=== PATIENT | female | born 1995 | race Two or more races ===

== ENCOUNTER 2016-05-29 21:04 | Outpatient (CLI) | payer OTHER ==
[2016-05-29 21:22] VITALS: BMI 31.1
[2016-05-30] MEDS ORDERED: MORPHINE SULFATE 10 MG/ML SYRINGE IM ONE (00:11)
[2016-05-30] MEDS ORDERED: PROMETHAZINE HCL 25 MG/ML VIAL IM ONE (00:11)
== END 2016-05-30 01:00 | disposition home or self-care (01) ==
LOC: FBCOUT 21:04 → FBC 21:04 → FBCOUT 05-30 01:00
PROVIDERS: ATTEND Advanced Practice Midwife
DX: O47.03 False labor before 37 completed weeks of gestation, third trimester (principal); Z3A.35 35 weeks gestation of pregnancy
CPT/HCPCS: 96372; 59025; J2270; J2550; G0463

== ENCOUNTER 2016-05-31 03:10 | Inpatient (IN) | payer OTHER ==
[2016-05-31 03:30] VITALS: BMI 31.6
[2016-05-31] MEDS ORDERED: PUMP TUBING ONE (03:47)
[2016-05-31] MEDS ORDERED: OXYTOCIN 10 UNITS/ML VIAL ONE (03:47)
[2016-05-31] MEDS ORDERED: LIDOCAINE 1% (PRES FREE) 30 ML VIAL ONE (03:47)
[2016-05-31] MEDS ORDERED: MINERAL OIL 25 ML BOT ONE (03:47)
[2016-05-31] MEDS ORDERED: LIDOCAINE Viscous 2% 15 ML UDCUP ONE (03:47)
[2016-05-31] MEDS ORDERED: OXYTOCIN IN LR 500 ML IV ONE (03:48)
--- NOTE | 2016-05-31 04:54 | PCMAN ---
OB Admission Note - History : 1 Term: 0 : 0 Abortions (S&E): 0 Livin EDC:: 05/24/16 (by 11wk u/s) Gestational Age (weeks): 41 Days (#/7): 0 Admit Cervical Dilation:: 6 Admit Cervical Effacement (%):: 100 Admit Station:: 0 Admit Presentaton:: vertex Membrane Status: Bulging Labor Onset (Date): 05/31/16 Labor Onset (Time): 02:00 Contractions: Yes Contraction Frequency:: 3-4 min Heart Rate:: 145 (moderate/accels present/decels absent) Status:: Cat. I, appropriate for IA EFW:: 8lb Summary of Course:: Onset to care at 9w0d x 15 visits. pre preg wt 150lbs, BMI 27.5, TWG 36lbs, Uncomplicated . Hx THC use prior to , neg UDS in , and hx depression and anxiety, not current but risk for depression/ anxiety. Spontaneous onset of contractions following prodromal labor with triage /labor checks x2 and therapeutic rest. She is coping well and would like to try without an epidural, but she is open to this option. She is supported by her partner José Luis. - Labs Blood Type: A (+) positive Hct/Hgb:: 11.3 Rubella Status: Immune GBS Status: Negative Abnormal Labs: None - Review of Systems ROS neg - Physical Exam General: Afebrile Psych/Mental Status: Mood/Affect Appropriate, Judgment/Insight Intact, Bonding Well Neurological: Grossly Intact, Alert, Oriented x 4, Normal Gait, Normal Speech Lungs: Clear to Auscultation Bilaterally, Normal Air Movement Cardiovascular: Regular Rate and Rhythm Genitourinary: Normal Female Genitalia Rectal Exam: Deferred Extremities: Full ROM Skin: Normal Color, Warm, Dry, Intact - Problems (1) Spontaneous onset of labor Status: Acute Code: [id number]/Plan: A: with IUP at 41w0d Active Labor FHT Cat I, appropriate for IA Membranes intact, gbs neg P: Admit to [facility], encouraged hydrotherapy No saline lock at this time, will reassess PRN encourage active movement anticipate
[2016-05-31] MEDS ORDERED: IV START KIT ONE (11:08)
[2016-05-31] MEDS ORDERED: FENTANYL 100 MCG/2 ML VIAL ONE (11:09)
[2016-05-31] MEDS ORDERED: SODIUM CHLORIDE 0.9% FLUSH 10 ML ONE ×2 (11:09→11:34)
[2016-05-31] MEDS: FENTANYL 100 MCG/2 ML VIAL IV PRN ×2 (11:44→18:26)
[2016-05-31 13:48] LABS: HEMATOCRIT 38.7 % (37.0-47.0); HEMOGLOBIN 13.2 gm/l (12.0-16.0); MEAN CELL VOLUME 88.4 fl (81.0-99.0); MEAN CORPUSCULAR HEMOGLOBIN 30.1 pg (27.0-31.0); MEAN CORPUSCULAR HGB CONC 34.1 g/dl (33.0-37.0)
--- NOTE | 2016-05-31 14:33 | PDOC36 ---
Provider Note Subject: labor progress note - fentanyl Note: S: States she is very tired, can hardly keep her eyes open. Has walked, sat on ball, and napped off and on but not gotten enough rest. She is now requesting pain meds to rest. O: 7.5/100/0. anterior, soft. IA: 130/increases auscultated/decreases not auscultated Ctx: q 3-8min, moderate VS: 120/81, P:113, R: 18 A: at 41w Active Labor Membranes Intact, GBS neg Appropriate for IA untill given IV pain meds P: Fentanyl ordered. Reviewed continued but slow labor progress, spaced contractions, and fatigue. Plan made for IV fentanyl followed by upright activity and possible AROM. Continuous monitoring while given fentanyl.
--- NOTE | 2016-05-31 14:35 | PDOC36 ---
Provider Note Subject: labor progress note - AROM Note: S: Colette was able to sleep for approx 45min with fentanyl and has been sitting up on the ball since. She states she is still tired but feels better. No significant change in ctx pattern or intensity. O: 8/100/0 IA: 130/increases auscultated/decreases not auscultated Ctx: q 5min, moderate VS: BP: 128/82, P:125, R: 18 A: at 41w Active Labor - protracted AROM for clear fluid, GBS neg Appropriate for IA Tachycardia noted, asymptomatic P: AROM for clear fluid. Reviewed anticipatory guidance for 2nd stage and more intense contractions. Colette states she is worried about the pain. Encouraged hands and knees and sitting on the ball, lunges, prior to returning to hydrotherapy Anticipate
[2016-05-31] MEDS: LACTATED RINGERS 1,000 ML IV SCH ×3 (19:05→22:56)
[2016-05-31] MEDS ORDERED: EPIDURAL PUMP SET ONE (19:21)
[2016-05-31] MEDS ORDERED: FENTANYL/ROPIVACAINE EPIDURAL 250 ML EP ONE (19:21)
[2016-05-31] MEDS ORDERED: LACTATED RINGERS 1,000 ML ONE (19:22)
[2016-05-31] MEDS ORDERED: EPIDURAL PROCEDURE TRAY ONE (19:49)
[2016-05-31] MEDS ORDERED: LIDOCAINE 2% (PRES FREE) 5 ML VIAL ONE (19:49)
--- NOTE | 2016-05-31 21:16 | PDOC36 ---
Provider Note Subject: Labor Progress Note Note: Note delayed due to involvement in patient care: S:At 1830 Colette was not coping well with labor. She was having increasing pain in her hips and legs. She requested medical pain management at this time. O: VS BP 127/81 P110 RR 18 T 98.8F SVE by offgoing CNM 8/100%/0 with anterior lip BSL 150 moderate variability, pos accels, no decels Ctx q 90 sec to 3 mins, lasting 60-80 sec Membranes ruptured x 7 hours A: at 41w0d Active Labor Maternal tachycardia, afebrile Desires epidural Fetus Cat 1 GBS neg P: One dose of 50mcg fentanyl was given while IV was replaced and fluids were started prior to epidural placement. Epidural initiated at 1950 Eating clears for energy, will sleep and rest until feels urge to push. Recheck in 2 hours or when clinically indicated Anticipate
[2016-05-31] MEDS: OXYTOCIN IN LR 500 ML IV PRN (23:29)
--- NOTE | 2016-05-31 23:31 | PDOC36 ---
Provider Note Subject: Labor Progress Note Note: S: Colette is resting comfortably with the epidural. She has been able to sleep. O: VS BP 139/70 HR 126 RR 16 T 100.0F SVE 9/100%/0 Ruptured membranes x 9 hours Ctx q2-4 mins palpating mild to moderate, lasting 70-90sec before IUPC After IUPC - MVU's 90 - q 2-3 mins lasting 60-90 sec BSL 160 moderate variability, pos accels, no decels A: at 41w0d Inadequate labor progress, inadequate contraction strength Maternal tachycardia, afebrile Fetus Cat 1 Ruptured x 9 hours GBS neg P: After discussion regarding inadequate progress, advised placement of IUPC to assess contraction strength. After IUPC placement and MVU's of 90 noted, discussed need to initiate Pitocin augmentation to help her uterus finish the work of labor. Colette understands and agrees to the plan. Discussed that we titrate Pitocin by starting low and increasing slowly, always monitoring her response and the infant's response. Pitocin augmentation initiated per unit protocol. CEFM. Using peanut ball and position changes to facilitate rotation and descent. Recheck in 2 hours or when clinically indicated Anticipate
[2016-05-31] MEDS ORDERED: ACETAMINOPHEN 500 MG TABLET PO PRN (23:49)
[2016-06-01] MEDS ORDERED: AMPICILLIN SODIUM 2 G VIAL ONE ×2 (00:04→06:01)
[2016-06-01] MEDS ORDERED: NS 0.9% (MINI-BAG PLUS) 100 ML IV ONE ×2 (00:04→06:01)
[2016-06-01] MEDS ORDERED: SODIUM CHLORIDE 0.9% 0 ML IV ONE (00:08)
[2016-06-01] MEDS ORDERED: GENTAMICIN SULFATE 800 MG/20 ML VIAL ONE ×2 (00:08→01:50)
[2016-06-01] MEDS: AMPICILLIN SODIUM 2 G in NS 0.9% (MINI-BAG PLUS) 100 ML IV SCH ×2 (00:13→06:05)
[2016-06-01] MEDS ORDERED: PUMP TUBING ONE (00:27)
[2016-06-01] MEDS ORDERED: IV START KIT ONE (00:27)
--- NOTE | 2016-06-01 00:28 | PDOC36 ---
Provider Note Subject: Labor Progress Note Note: S: Colette is resting and feels some tugging where her catheters are placed. She feels some pressure with contractions. O: BP 129/70 HR 137 R 20 T 101.7F Ax and 102.2F Ax (30 mins apart) BSL 170 moderate variability, occasional variable decels, not >50% of contractions, no accels MVU's 100- 130 Pitocin infusing at 3 SVE deferred. Clear fluid, no malodor A: at 41w0d Inadequate labor progress, inadequate contraction strength Maternal and tachycardia Maternal fever Fetus Cat 2 Intra-amniotic infection P: Discussion with Colette explaining the infection and why we treat. Discussed that we are closely monitoring her and the baby. Amp & Gent Tylenol for fever Per Cat II algorithm OK to continue and anticipate . Pitocin augmentation continued per unit protocol. CEFM. Using peanut ball and position changes to facilitate rotation and descent. Recheck in 2 hours or when clinically indicated Anticipate
[2016-06-01] MEDS ORDERED: SODIUM CHLORIDE 0.9% IV SCH ×2 (01:00→01:53)
[2016-06-01] MEDS ORDERED: FENTANYL/ROPIVACAINE EPIDURAL 250 ML EP SCH (01:00)
[2016-06-01] MEDS ORDERED: GENTAMICIN SULFATE IV SCH ×2 (01:00→01:53)
[2016-06-01] MEDS ORDERED: GENTAMICIN SULFATE 320 MG in SODIUM CHLORIDE 0.9% 100 ML IV SCH (01:15)
[2016-06-01] MEDS: OXYTOCIN IN LR 500 ML IV PRN ×2 (01:21→03:49)
[2016-06-01] MEDS ORDERED: NALBUPHINE HCL 20 MG/ML AMP IV PRN (01:25)
[2016-06-01] MEDS ORDERED: METOCLOPRAMIDE HCL 5 MG/ML 2ML VIAL IV PRN (01:25)
[2016-06-01] MEDS ORDERED: DIPHENHYDRAMINE HCL 50 MG/1 ML VIAL IV PRN ×2 (01:25→10:53)
[2016-06-01] MEDS ORDERED: NALOXONE HCL 0.4 MG/ML VIAL IV PRN (01:25)
[2016-06-01] MEDS ORDERED: EPHEDRINE SULFATE 50 MG/ML 1ML VIAL IV PRN (01:25)
[2016-06-01] MEDS ORDERED: LACTATED RINGERS 500 ML IV PRN (01:25)
[2016-06-01] MEDS ORDERED: SODIUM CHLORIDE 0.9% 500 ML IV PRN (01:25)
[2016-06-01] MEDS ORDERED: ONDANSETRON 4 MG/2ML 2 ML VIAL IV PRN ×2 (01:25→10:53)
[2016-06-01] MEDS ORDERED: GENTAMICIN SULFATE 200 MG in SODIUM CHLORIDE 0.9% 100 ML IV SCH (01:30)
[2016-06-01] MEDS ORDERED: SODIUM CHLORIDE 0.9% 100 ML IV ONE ×2 (01:50)
[2016-06-01] MEDS ORDERED: SODIUM CHLORIDE 0.9% IV ONE (02:30)
[2016-06-01] MEDS ORDERED: GENTAMICIN SULFATE IV ONE (02:30)
--- NOTE | 2016-06-01 03:44 | PDOC36 ---
Provider Note Subject: Labor Progress Note Note: S: Colette feels more pressure with contractions. She says that she feels cooler and not as tired now. O: VS BP 115/68 P 139 RR 18 T 101.2F Axillary SVE complete/+1 BSL 165 moderate variability, occasional variable decels, pos accels MVUs 200 at 0200 ctx q 2-4 mins lasting 70-80sec ruptured x 13 hours, light mec A: at 41w0d Adequate MVUs Fetus Cat 2 Intra-amniotic infection s/p tx with tylenol, amp and gent P: Tried pushing over 4-5 contractions and noted minimal descent with effort. Will labor down x one hour and continue with pushing. Continue to monitor fetus and mother closely. Pitocin augmentation continued per unit protocol. CEFM. High tailor's position to facilitate descent Recheck in 1 hours or when clinically indicated Anticipate
[2016-06-01] MEDS ORDERED: ACETAMINOPHEN 500 MG TABLET PO PRN (05:51)
--- NOTE | 2016-06-01 06:02 | PDOC36 ---
Provider Note Subject: Labor Progress Note Note: S: Colette has been pushing with contractions - she is feeling more pain and rpessure with ctx. O: VS BP 128/87 P 142 RR 18 T 100.7FAxillary SVE complete/+1 BSL 175 moderate variability, occasional variable decels, pos accels MVUs 190 ctx q 2-4 mins lasting 60-80sec A: at 41w0d Adequate MVUs Fetus Cat 2 Intra-amniotic infection s/p tx with tylenol, amp and gent P: Has pushed for about 45 minutes total since complete at [address] Appiah and with the moderate variability adn absence of significant decelerations, it is reasonable to continue to push for anohter 1 -2 hours since she is a nullip with an epidural. Continue pushing in a variety of positions to facilitate descent. Continue to monitor fetus and mother closely. Treat maternal temp again at 0600 with 1000mg tylenol. COntinue with amp and gent per protocol. Pitocin augmentation continued per unit protocol. CEFM. Consult with on-call thread singer as appropriate Anticipate
[2016-06-01] MEDS: LACTATED RINGERS 1,000 ML IV SCH (06:25)
[2016-06-01] MEDS ORDERED: LIDOCAINE 2%/EPI (PRES FREE) 20 ML VIAL ONE (08:33)
--- NOTE | 2016-06-01 08:34 | PDOC36 ---
Provider Note Subject: Called by CNM to evaluate patient with chorioamnionitis. Patient has been pushing for several hours and can't seem to get the baby past +1/2 station. Pushed with patient for about 45 minutes, poor maternal effort. station did not move past +1/[address] vaccuum at that station. Patient decided she didn't have the strength to proceed with vaginal delivery and would like to proceed with ceserean section. VSS SVE: 10/100/+1-2. FHT: 140/mod/+accels/-decels [place]: Q3 A/P 20 yo @41.1, labor. Failure to descend, chorioamnionitis. Will proceed with primary ceserean section. R/B/A discussed with patient and family. Anesthesia notified.
[2016-06-01] MEDS ORDERED: OXYTOCIN 10 UNITS/ML VIAL ONE ×5 (08:35→10:52)
[2016-06-01] MEDS ORDERED: ONDANSETRON 4 MG/2ML 2 ML VIAL ONE (08:35)
[2016-06-01] MEDS ORDERED: CEFAZOLIN SODIUM 1 GRAM PREMIX 1 G in Premix (D5W) 50 ml 1 EACH IV PRN (08:52)
[2016-06-01] MEDS ORDERED: CEFAZOLIN SODIUM 1 GRAM PREMIX 50 ML IV ONE (08:56)
--- NOTE | 2016-06-01 09:01 | PDOC36 ---
Provider Note Subject: Labor Progress Note Note: S: Colette is feeling more painful and tired. O: VS BP 128/87 P 142 RR 18 T 100.7FAxillary SVE complete/+1 after 2 hours pushing in multiple positions BSL 155 moderate variability, occasional variable decels, pos accels MVUs unable to assess with pushed Pitocin at 9 ctx q 2-3 mins lasting 60-80 sec A: at 41w0d Adequate MVUs Fetus Cat 2, no evidence of acidemia Intra-amniotic infection s/p tx with tylenol, amp and gent Inadequate progress for 2 hours despite adequate MVUs P: Consulted with Dr Bentley to assess for vacuum assist or CS. Dr Bentley pushed with Colette for about 30 minutes and also noted minimal descent. Recommended vacuum if Colette was able to mount good effort and bring baby to favorable station or CS if Colette did not feel able to continue at this time. Counseled that we have been able to go this long because baby was doign well per EFM. After discussion with her partner, Colette opted for CS delivery at this time. Anesthesia notified and Colette consented for CS delivery.
[2016-06-01] MEDS ORDERED: PROPOFOL 20 ML IV ONE (09:23)
[2016-06-01] MEDS ORDERED: SUCCINYLCHOLINE CHL 20 MG/ML DOSE ONE (09:23)
[2016-06-01] MEDS ORDERED: FENTANYL 100 MCG/2 ML VIAL ONE ×2 (09:27→10:50)
[2016-06-01] MEDS ORDERED: DEXAMETHASONE SOD PHOS 4 MG/1 ML VIAL ONE (09:36)
[2016-06-01] MEDS ORDERED: CARBOPROST TROMETH 250 MCG/ML AMP IM ONE (09:41)
[2016-06-01] MEDS ORDERED: HYDROMORPHONE HCL 2 MG/ML SYRINGE ONE (09:53)
[2016-06-01] MEDS ORDERED: METHYLERGONOVINE MALEATE 0.2 MG/ML 1ML AMP ONE (09:56)
--- NOTE | 2016-06-01 10:27 | PCMBPN ---
Brief Post Op Note: Date of Procedure: 06/01/16 Start Time: [] Preoperative Diagnosis: 1. [Arrest of Descent, Poor maternal effort] Postoperative Diagnosis: 1. [Same] Procedure: [primary low transverse ceserean section] Surgeon: Clary Bentley DO Assist:[Joanne Dayana] Anesthesia: [Failed epidural bolus, general] Findings: [Male weight 9.13, OP position] Condition: [stable] Complications: [uterine atony] IV Fluids: [2000] mLs of LR [] Urine Output: [250] mLs Estimated Blood Loss: [1000] mLs Tourniquet Time: [N/A] Specimens: [N/A] Implants: [none] Drains: [N/A]
[2016-06-01] MEDS ORDERED: OXYTOCIN 20 UNITS in LACTATED RINGERS 1,000 ML IV SCH (10:52)
[2016-06-01] MEDS ORDERED: LACTATED RINGERS 1,000 ML ONE ×3 (10:52→13:29)
[2016-06-01] MEDS ORDERED: DIPHENHYDRAMINE HCL 25 MG CAPSULE PO PRN (10:53)
[2016-06-01] MEDS ORDERED: PROMETHAZINE HCL 25 MG/ML VIAL IM PRN (10:53)
[2016-06-01] MEDS ORDERED: LANOLIN 50 APPLIC/7G TUBE TP PRN (10:53)
[2016-06-01] MEDS ORDERED: OXYTOCIN IN LR 500 ML IV ONE (10:59)
--- NOTE | 2016-06-01 11:37 | OP ---
Colette Ybarra [id number] DATE OF PROCEDURE: 06/01/2016 PREOPERATIVE DIAGNOSES: Arrest of descent and poor maternal effort. POSTOPERATIVE DIAGNOSES: Arrest of descent and poor maternal effort. PROCEDURE: Primary low transverse section. SURGEON: Clary Bentley D.O. FORMS ANALYST: Joanne Anne CNM ANESTHESIA: Failed epidural bolus which was converted to general anesthesia. FINDINGS: A male weighing 9 pounds 13 ounces in the OP position. CONDITION: Stable. COMPLICATIONS: Uterine atony. IV FLUIDS: 2000 mL of lactated ringers. URINE OUTPUT: 250. ESTIMATED BLOOD LOSS: 1000. SPECIMENS: None. IMPLANTS: None. DRAINS: None. INDICATION: The patient is a 20-year-old G1, P0 who progressed to complete. She suffered chorioamnitis during the course of her labor and has pushed for several hours. She could not get the baby passed the +2, +3 station. I was consulted at that point. Pushed with the patient for several contractions and found that the baby was not moving down far enough for me to place a vacuum. The patient was consented for a primary low transverse section. She agreed to the procedure. PROCEDURE: The patient was taken back to the operating room where 1 gm of Ancef was given for infection prophylaxis. Her epidural was attempted to be bolused, but was unsuccessful, so she was placed under general anesthesia. Once anesthesia was adequate a scalpel was used to make a pfannenstiel skin incision. The incision was carried down to the fascia with a Bovie. The fascia was nicked in the midline and the fascial incision was extended away using scissors. The superior aspect of the fascia was grasped with two Giancarlo clamps and the underlying rectus muscle was dissected off sharply using Brooks scissors. In a similar fashion the inferior aspect of the fascia was grasped using two Giancarlo clamps and the rectus and pyramidalis muscles were dissected off sharply using Brooks scissors. The rectus muscle was in the midline. The peritoneum was identified, grasped with a hemostat and entered sharply with Metzenbaum scissors. The peritoneal incision was extended using lateral traction and a bladder blade was inserted to keep the bladder out of the operative field. A bladder flap was developed using Metzenbaum scissors and the bladder blade was reinserted to keep the bladder out of the operative field. A second knife was then used to incise the uterus. The uterus was entered and the incision was extended laterally using manual traction. Thick meconium was noted upon entry into the uterine cavity. The fetus was found in direct OP position. The head was elevated out of the pelvis and through the uterine incision. Fundal pressure was applied to deliver the head of the . Due to the large size of the some difficulty was encountered delivering the remainder of the body. The anterior arm was swept forward and delivered through the incision and the remainder of the body was delivered without difficulty. The mouth and nose were suctioned with a bulb syringe. The cord was clamped and cut, and the baby was handed off to the waiting nurse. Cord blood was collected and the placenta was delivered intact with manual extraction. At this point, the uterus was delivered through the incision and uterine atony was noted. Atony was attempted to be controlled with bimanual message. When this did not successful tamp down the uterus a dose of Methergine was given. This somewhat controlled the uterine atony and after several more minutes of bimanual message the decision was made to give the patient Hemabate. The Hemabate did tamp down the uterus and it became firm. The uterine incision was closed with 0 Vicryl. Upon closure of the uterine incision there were several sites that were not hemostatic that were controlled with figure of eight stitches of 0 Vicryl suture. At this point, the uterine incision was hemostatic and the uterus was firm, so it was returned to the uterine cavity. The abdomen was wiped clear of blood clots and debris. A last look was made at the uterine incision and again hemostasis was identified. The fascia was then closed with 0 Vicryl in a running locking fashion. The skin was closed with 0 Vicryl in a Adam needle. The patient tolerated the procedure well and was easily aroused from anesthesia where she was taken to recovery. JOB: [id number]
[2016-06-01] MEDS ORDERED: MORPHINE SULFATE 2 MG/ML SYRINGE ONE (12:45)
[2016-06-01] MEDS: MORPHINE SULFATE 2 MG/ML SYRINGE IV PRN ×3 (12:52→18:21)
[2016-06-01] MEDS: OXYCODONE/ACETAMINOPHEN 5/325 MG TABLET PO PRN ×2 (20:12→21:14)
[2016-06-01] MEDS: DOCUSATE SODIUM 100 MG CAPSULE PO SCH (20:12)
[2016-06-01] MEDS: IBUPROFEN 800 MG TABLET PO PRN (20:13)
[2016-06-02] MEDS ORDERED: GENTAMICIN SULFATE 320 MG in SODIUM CHLORIDE 0.9% 100 ML IV SCH (01:00)
[2016-06-02] MEDS: OXYCODONE/ACETAMINOPHEN 5/325 MG TABLET PO PRN ×4 (02:10→23:03)
[2016-06-02] MEDS: IBUPROFEN 800 MG TABLET PO PRN ×4 (02:10→20:20)
[2016-06-02 06:48] LABS: HEMATOCRIT 25.5 % (37.0-47.0); HEMOGLOBIN 8.6 gm/l (12.0-16.0)
[2016-06-02] MEDS: LACTATED RINGERS 1,000 ML IV SCH (07:19)
[2016-06-02] MEDS ORDERED: SIMETHICONE 80 MG TAB.CHEW PO PRN (08:24)
--- NOTE | 2016-06-02 08:24 | PDOC44 ---
- Subjective Day: 1 (offers no complaints) Reports Pain Tolerable, Reports , Reports Lochia Light, Reports Tolerating Clear Liquids, Denies Flatus, Denies Nausea, Denies Vomiting, Denies Fever - Objective Temp Pulse Resp BP Pulse Ox 97.4 F 107 16 109/57 06/02/16 08:09 06/02/16 08:09 06/02/16 08:09 06/02/16 08:09 Lab Results 06/02/16 06:10 Hgb 8.6 L D Hct 25.5 L Current Medications Generic Name Dose Route Start Last Admin Trade Name Freq PRN Reason Stop Dose Admin Diphenhydramine HCl 25 - 50 mg 06/01/16 10:53 Benadryl PO Q6H PRN Itching (Mild/Moderate) Diphenhydramine HCl 25 - 50 mg 06/01/16 10:53 Benadryl IV Q6H PRN Itching (Severe) Docusate Sodium 100 mg 06/01/16 21:00 06/01/16 20:12 Colace PO 100 mg BID JIMMY Administration Emollient Ointment 1 applic 06/01/16 10:53 06/02/16 04:38 Ccu-N-Euijum TP 1 tube PRN PRN Administration sore nipples Ferrous Sulfate 325 mg 06/02/16 09:00 Ferrous Sulfate PO DAILY [facility] Ibuprofen 800 mg 06/01/16 10:53 06/02/16 02:10 Motrin PO 800 mg Q6H PRN Administration Pain Morphine Sulfate 2 mg 06/01/16 12:41 06/01/16 18:21 Morphine Sulfate IV 2 mg Q2H PRN Administration Pain Multivi/Iron Carb/Fe Sulf/FA/Prenat 1 tab 06/02/16 09:00 Plus PO DAILY JIMMY Ondansetron HCl 4 mg 06/01/16 10:53 Zofran IV Q6H PRN Nausea/Vomiting Oxycodone/Acetaminophen 1 - 2 tab 06/01/16 10:53 06/02/16 06:39 Percocet 5/325 PO 2 tab Q4H PRN Administration Pain (Moderate) Promethazine HCl 25 mg 06/01/16 10:53 Phenergan IM Q6H PRN Nausea/Vomiting Sodium Chloride 10 ml 06/01/16 10:53 Normal Saline 10ml Flush IV PRN PRN IV Flush Sodium Chloride 10 ml 06/01/16 17:00 06/02/16 07:18 Normal Saline 10ml Flush IV Not Given Q8HR JIMMY - Physical Exam General: Afebrile, No Acute Distress Psych/Mental Status: Mood/Affect Appropriate, Judgment/Insight Intact, Bonding Well Lungs: Clear to Auscultation Bilaterally, Normal Air Movement Breast: Soft, Skin intact, Nipples Intact, No Tenderness, No Erythema, No Engorged Fundus: Firm, Midline, At Umbilicus, Other (nontender) Abdomen: Hypoactive Bowel Sounds, Distention, Other (hasn't passed flatus yet, tympany), No Tenderness Genitourinary: Other (wilson just removed, hasn't voiding yet) Lochia: Light Extremities: No Tenderness Wound TITLE ABSTRACTOR: Dressing in Place, Dressing Clean/Dry/Intact - Problems:Assessment/Plan (1) Distended abdomen Status: Acute Disposition: Stable (rx for mylecon ordered)
[2016-06-02] MEDS: FERROUS SULFATE (65 Fe) 325 MG TABLET PO SCH (08:36)
[2016-06-02] MEDS: PRENATAL VIT/FE FUMARATE/FA 1 TABLET PO SCH (08:36)
[2016-06-02] MEDS: DOCUSATE SODIUM 100 MG CAPSULE PO SCH ×2 (08:36→20:20)
[2016-06-03] MEDS: IBUPROFEN 800 MG TABLET PO PRN ×4 (02:22→19:30)
[2016-06-03] MEDS: OXYCODONE/ACETAMINOPHEN 5/325 MG TABLET PO PRN ×3 (05:18→23:42)
--- NOTE | 2016-06-03 05:46 | PDOC44 ---
- Subjective Day: 2 (feels well) Reports Flatus, Reports Pain Tolerable, Reports , Reports Lochia Light, Reports Tolerating Regular Diet, Denies Nausea, Denies Vomiting, Denies Fever - Objective Temp Pulse Resp BP Pulse Ox 97.1 F 115 16 128/74 06/03/16 02:15 06/03/16 02:15 06/03/16 02:15 06/03/16 02:15 Lab Results 06/02/16 06:10 Hgb 8.6 L D Hct 25.5 L Current Medications Generic Name Dose Route Start Last Admin Trade Name Freq PRN Reason Stop Dose Admin Diphenhydramine HCl 25 - 50 mg 06/01/16 10:53 Benadryl PO Q6H PRN Itching (Mild/Moderate) Diphenhydramine HCl 25 - 50 mg 06/01/16 10:53 Benadryl IV Q6H PRN Itching (Severe) Docusate Sodium 100 mg 06/01/16 21:00 06/02/16 20:20 Colace PO 100 mg BID JIMMY Administration Emollient Ointment 1 applic 06/01/16 10:53 06/02/16 04:38 [id number] TP 1 tube PRN PRN Administration sore nipples Ferrous Sulfate 325 mg 06/02/16 09:00 06/02/16 08:36 Ferrous Sulfate PO 325 mg DAILY JIMMY Administration Ibuprofen 800 mg 06/01/16 10:53 06/03/16 02:22 Motrin PO 800 mg Q6H PRN Administration Pain Morphine Sulfate 2 mg 06/01/16 12:41 06/01/16 18:21 Morphine Sulfate IV 2 mg Q2H PRN Administration Pain Multivi/Iron Carb/Fe Sulf/FA/Prenat 1 tab 06/02/16 09:00 06/02/16 08:36 Plus PO 1 tab DAILY JIMMY Administration Ondansetron HCl 4 mg 06/01/16 10:53 Zofran IV Q6H PRN Nausea/Vomiting Oxycodone/Acetaminophen 1 - 2 tab 06/01/16 10:53 06/03/16 05:18 Percocet 5/325 PO 2 tab Q4H PRN Administration Pain (Moderate) Promethazine HCl 25 mg 06/01/16 10:53 Phenergan IM Q6H PRN Nausea/Vomiting Simethicone 80 mg 06/02/16 08:24 06/02/16 08:36 Mylicon PO 80 mg TID PRN Administration Gas Sodium Chloride 10 ml 06/01/16 10:53 Normal Saline 10ml Flush IV PRN PRN IV Flush Sodium Chloride 10 ml 06/01/16 17:00 06/03/16 01:07 Normal Saline 10ml Flush IV Not Given Q8HR JIMMY - Physical Exam General: Afebrile, No Acute Distress Psych/Mental Status: Mood/Affect Appropriate, Judgment/Insight Intact, Bonding Well Lungs: Clear to Auscultation Bilaterally, Normal Air Movement Breast: Soft, Skin intact, Nipples Intact, No Tenderness, No Erythema, No Engorged Fundus: Firm, Midline, Below Umbilicus, Other (nontender) Abdomen: Normal Bowel Sounds, Mild Distention, Other (flatus passed, no bowel movement yet), No Tenderness Genitourinary: Other (voiding without difficulty) Lochia: Light Extremities: No Tenderness Wound PROSTHETIC AIDES TEACHER: Well Approximated, Other (suture line intact), No Drainage, No Erythema, No Rash - Problems:Assessment/Plan (1) Distended abdomen Status: Acute
[2016-06-03] MEDS: DOCUSATE SODIUM 100 MG CAPSULE PO SCH ×4 (07:54→22:11)
[2016-06-03] MEDS: FERROUS SULFATE (65 Fe) 325 MG TABLET PO SCH ×2 (07:54→15:25)
[2016-06-03] MEDS: PRENATAL VIT/FE FUMARATE/FA 1 TABLET PO SCH (08:30)
[2016-06-03] MEDS ORDERED: MAGNESIUM HYDROXIDE 30 ML UDCUP PO PRN (21:36)
[2016-06-04] MEDS: IBUPROFEN 800 MG TABLET PO PRN ×2 (02:34→08:32)
[2016-06-04 07:31] VITALS: BP 125/80
[2016-06-04] MEDS: FERROUS SULFATE (65 Fe) 325 MG TABLET PO SCH ×2 (07:40→13:59)
[2016-06-04] MEDS: PRENATAL VIT/FE FUMARATE/FA 1 TABLET PO SCH ×2 (07:40→13:57)
[2016-06-04] MEDS: DOCUSATE SODIUM 100 MG CAPSULE PO SCH ×2 (07:40→13:59)
[2016-06-04] MEDS: OXYCODONE/ACETAMINOPHEN 5/325 MG TABLET PO PRN ×2 (08:33→13:56)
--- NOTE | 2016-06-04 13:06 | PDOC39B ---
Hospital Course: ADMIT DATE: 05/31/16 DISCHARGE DATE: 06/04/16 ADMISSION DIAGNOSES: intrauterine at 40.1 weeks, labor PROCEDURES: labor management, primary lower segment cesarian section HISTORY OF PRESENT ILLNESS: 20 year old G1 T0 L0 at 40 weeks 1 days presenting with labor at term HOSPITAL COURSE: The patient progressed to fully dilated, had chorioamnionitis and poor maternal effort while pushing with arrest of decent, and a primary cesarian section was performed, during which time there was uterine atony and associated hemorrhage. By day of discharge the patient is ambulating, eating, voiding, and passing flatus without difficulty. Pain is controlled and lochia is appropriate. She is [], would like a stool softener rx. - Physical Exam Vital Signs: Temp Pulse Resp BP Pulse Ox 99.4 F 110 18 125/80 06/04/16 07:27 06/04/16 07:27 06/04/16 07:27 06/04/16 07:27 General: Afebrile, No Acute Distress Psych/Mental Status: Mood/Affect Appropriate, Judgment/Insight Intact, Bonding Well Lungs: Clear to Auscultation Bilaterally, Normal Air Movement Breast: Soft, Skin intact, Nipples Intact, No Tenderness, No Erythema, No Engorged Fundus: Firm, Midline, At Umbilicus, Other (nontender) Abdomen: Normal Bowel Sounds, No Tenderness (no bowel movement yet, has passed flatus), No Distention Genitourinary: Other (voiding without difficulty) Lochia: Light Extremities: No Tenderness Wound: Well Approximated, Other (nontender), No Drainage, No Erythema, No Rash, No Edema - Discharge Diagnosis (1) Distended abdomen Status: Acute (2) Chorioamnionitis Status: Acute (3) Prolonged second stage of labor due to poor maternal effort Status: Acute (4) Failure of descent in labor, delivered, current hospitalization Status: Acute (5) atony of uterus with hemorrhage Status: Acute (6) Anemia Status: Acute - Discharge Plan Condition: Stable Disposition: Home Additional Instructions: BABIES clinic appointment for 06/06/16, at 2pm. Bring baby ready to nurse. Come to the front desk admin of the [facility]. office visit with dr portillo in 3 days, take prescribed meds as written, nothing in vagina x 6 weeks, no heavy lifting. Prescriptions: Bisacodyl [Dulcolax] 1 each [place] DAILY PRN #10 sup PRN Reason: Constipation Ibuprofen [Motrin] 800 mg PO Q8H PRN #30 tablet PRN Reason: Pain FERROUS SULFATE (65 Fe) [IRON FERROUS SULFATE 325 MG TABLET (SHF)] 325 mg PO DAILY #30 tab Oxycodone HCl/Acetaminophen [PERCOCET 5/325 MG TABLET (SHF)] 1 - 2 tab PO Q4H PRN #14 tablet PRN Reason: Pain (Moderate) Follow-Up: [facility] [Outside]
== END 2016-06-04 14:00 | disposition home or self-care (01) | DRG 765 ==
LOC: FBC 03:10 → FBCOUT 03:10 → FBC 03:34 → FBCOUT 03:34 → FBC 06-01 09:00
PROVIDERS: ADMIT Advanced Practice Midwife; ATTEND Obstetrics & Gynecology
PROC: 00HU33Z Insertion of Infusion Device into Spinal Canal, Percutaneous Approach (ICD-10-PCS; 2016-05-31)
PROC: 10907ZC Drainage of Amniotic Fluid, Therapeutic from Products of Conception, Via Natural or Artificial Opening (ICD-10-PCS; 2016-05-31)
PROC: 10D00Z1 Extraction of Products of Conception, Low, Open Approach (ICD-10-PCS; principal; 2016-06-01)
PROC: 10H00YZ Insertion of Other Device into Products of Conception, Open Approach (ICD-10-PCS; 2016-06-01)
DX: O64.8XX0 Obstructed labor due to other malposition and malpresentation, not applicable or unspecified (principal); O41.1230 Chorioamnionitis, third trimester, not applicable or unspecified; O99.42 Diseases of the circulatory system complicating childbirth; O72.1 Other immediate postpartum hemorrhage; O75.2 Pyrexia during labor, not elsewhere classified; O63.0 Prolonged first stage (of labor); O48.0 Post-term pregnancy; Z3A.41 41 weeks gestation of pregnancy; Z37.0 Single live birth; Z86.59 Personal history of other mental and behavioral disorders; O75.81 Maternal exhaustion complicating labor and delivery; R00.0 Tachycardia, unspecified; O76 Abnormality in fetal heart rate and rhythm complicating labor and delivery; O77.0 Labor and delivery complicated by meconium in amniotic fluid; O90.81 Anemia of the puerperium; O63.1 Prolonged second stage (of labor)